=== PATIENT | male | born 1980 | race African-American/Black ===

== ENCOUNTER 2017-02-09 12:11 | Emergency (ER) | payer OTHER ==
[~2017-02-09] VITALS: Ht 172.7 cm; Wt 91.0 kg
[2017-02-09 12:13] VITALS: BP 198/88
== END 2017-02-09 13:03 | disposition left against medical advice (07) ==
LOC: ER 12:30
DX: M79.642 Pain in left hand (principal); Z53.21 Procedure and treatment not carried out due to patient leaving prior to being seen by health care provider